=== PATIENT | male | born 1945 | race Native Hawaiian/Other Pacific Islander ===

== ENCOUNTER 2016-03-19 20:41 | Emergency (ER) | payer MEDICARE, MEDICAID ==
[~2016-03-19] VITALS: Ht 172.7 cm; Wt 85.6 kg
[~2016-03-19 20:41] MED LIST: AMLO5 PO; FENO50TA PO; HYDR-3516 PO; OSCA200T PO; PRIM50TA5 PO; XARE10TA PO; ZOCO20TA PO
[2016-03-19 21:03] VITALS: BP 148/90; PULSE 92; RESP 18; TEMP 98.7; O2SAT 100
[2016-03-19] MEDS ORDERED: PRIM50TA5 PO (21:18)
[2016-03-19] MEDS ORDERED: DICL25 PO (21:18)
--- NOTE | 2016-03-19 21:53 | PD ---
HPI Chief Complaint: Fall Time Seen by Provider: 21:53 Travel History International Travel<30 days: No Contact w/Intl Traveler<30days: No Traveled to known affect area: No History of Present Illness HPI Patient is a 70-year-old male with a history of polio and chronic lower extremity weakness presenting with left low side but again back pain after fall. Approximate 4 hours prior to exam the patient was attempting to lift a heavy suitcase as he was flying to [facility] tomorrow. He states that he felt a pulling sensation in his low back and then he fell. He fell onto the carpeted floor but the pain was worse since. Pain is moderate to severe, worse with movement. It radiates down the posterior left leg to the mid thigh. He denies any new paresthesias or weakness. He denies any abdominal pain, bowel or bladder dysfunction or saddle anesthesia. He denies any head or neck injury. He took 2 Aleve which seemed to help. PFSH Past Medical History Arthritis: Yes Musculoskeletal: Yes (polio at a year and a half) Neurologic: Yes (polio at a year and a half. ble weak.. also bilat. hand tremors) Tetanus Vaccination: > 5 Years Influenza Vaccination: Yes Past Surgical History Surgical History: No Previous Surgery Social History Alcohol Use: No Tobacco Use: No Substance Use: No Allergies-Medications (Allergen,Severity, Reaction): Coded Allergies: No Known Allergies (Unverified , 03/19/16) Reported Meds & Prescriptions Reported Meds & Active Scripts Active Diclofenac Potassium 50 Mg Tab 50 Mg PO TID Reported Diclofenac Sodium DR (Diclofenac Sodium) 25 Mg Tabdr 25 Mg PO BID Primidone 50 Mg Tab 100 Mg PO TID Review of Systems Except as stated in HPI: all other systems reviewed are Neg Physical Exam Narrative GENERAL: Well-developed and well-nourished adult male in no acute distress. SKIN: Warm and dry. Good turgor without tenting. HEAD: Normocephalic and atraumatic. EYES: PERRL bilaterally, 5mm. EOMI bilaterally. No injection or icterus present. No proptosis. Lids without edema or erythema. CARDIOVASCULAR: Regular rate and rhythm without murmurs, rubs, clicks or gallops. Dorsalis pedis and posterior tibial pulses 2+ bilaterally. No pedal edema. RESPIRATORY: Clear to auscultation bilaterally with symmetrical rise and fall, no distress or use of accessory muscles. GASTROINTESTINAL: Non-tender, non-distended. Normal bowel sounds all 4 quadrants. No masses or organomegaly present. MUSCULOSKELETAL: Lumbar spinal deformity with prominence to the right, likely scoliosis. Patient has diffuse tenderness to this region without crepitus or step-offs. No edema or discoloration appreciable according to the . Patient has atrophy of the lower extremities chronically some rotational deformities. He has been ambulatory. Patient freely moving all four extremities spontaneously. Extremities without clubbing, cyanosis, or edema. NEUROLOGIC: CN II-XII grossly intact. Awake and alert. Bilateral hip extension and knee extension is strength 1/5, bilateral hip flexion and knee flexion are 4 /5. Chronic foot drop without any ability to plantar or dorsiflex the ankle. Sensation intact L3 through S2 bilaterally. Patellar and Achilles DTRs absent. Babinski bilateral produces no response. Normal speech. PSYCHIATRIC: Appropriate mood and affect; insight and judgment normal. Data Data Last Documented VS Vital Signs Date Time Temp Pulse Resp B/P Pulse Ox O2 Delivery O2 Flow Rate FiO2 03/19/16 23:47 88 18 140/88 100 Room Air 03/19/16 21:[address] Lumb Spine W/O Contrast (03/19/16 ) MDM Medical Decision Making Medical Screen Exam Complete: Yes Emergency Medical Condition: Yes Differential Diagnosis Lumbar strain versus lumbar contusion versus lumbar fracture versus sciatica versus HNP Narrative Course Patient is a 70-year-old male with a history of polio with chronic lumbar deformity and atrophy and weakness of the bilateral lower extremities. He presents with left low back and flank pain after a fall earlier today. He denies any new neurologic symptoms. Significant deformity of the lumbar spine makes evaluating with x-ray difficult. Per the there is no new deformity. He is diffusely tender. Ordered lumbar CT and patient was signed out to Dr. Monroe pending CT. Diagnosis Primary Impression: Contusion of back Qualified Code: S20.229A - Contusion of back, unspecified laterality, initial encounter Departure Forms: Tests/Procedures, Work Release Special Instructions: Due to disability with injury it is unsafe for this patient to travel by plane at this time. Please consider this in regards to patient's travel tomorrow. Scripts Diclofenac Potassium 50 Mg Tab50 Mg PO TID #30 TAB Ref 0 Prov:Eliseo Wang MD 03/19/16 Condition: Stable Arain Estrada III Mar 19, 2016 21:53
--- NOTE | 2016-03-19 23:13 | RADHPO ---
EXAM DATE/TIME: 03/19/2016 22:21 [facility] COMPARISON: No previous studies available for comparison. INDICATIONS : Left lower back and hip pain. RADIATION DOSE: 40.16 CTDIvol (mGy) MEDICAL HISTORY : Polio, current. SURGICAL HISTORY : None. ENCOUNTER: Initial ACUITY: 1 day PAIN SCALE: 8/10 LOCATION: Left lower back. TECHNIQUE: Volumetric scanning of the lumbar spine was performed. Multiplanar reconstructions in the sagittal, coronal and oblique axial planes were performed. Using automated exposure control and adjustment of the mA and/or kV according to patient size, radiation dose was kept as low as reasonably achievable t o obtain optimal diagnostic quality images. FINDINGS: Sagittal images demostrate normal vertebral body alignment and curvature. No fractures are identified . Axial images performed from T12-L1 through L5-S1. There is multilevel disc space narrowing and marlene inal osteophyte formation maximal at L3-L4. T12-L1: There is mild diffuse annular bulge of the disc. The neural foramina are clear bilaterally. There is no significant spinal canal stenosis. L1-L2: There is broad-based annular bulge of disc. There is mild facet arthritis and ligamentum flavum hyper trophy bilaterally. The neural foramina are clear bilaterally. L2-L3: There is broad-based annular bulge of disc asymmetric to the right. There is mild facet arthritis elmo aterally. There is no significant spinal canal stenosis. L3-L4: There is mild annular bulge of the disc. There is mild facet arthritis and ligamentum flavum hypertro phy bilaterally. L4-L5: There is broad-based annular bulge of disc. There is moderate facet arthritis bilaterally with ligame ntum flavum hypertrophy. There is mild spinal canal stenosis. There is mild neural foraminal narrowin g bilaterally. L5-S1: There is mild annular bulge of the disc. There is moderate facet arthritis bilaterally with ligamentu m flavum hypertrophy. There is moderate neural foraminal narrowing bilaterally. There is no significa nt spinal canal stenosis. CONCLUSION: 1. Degenerative changes maximal at L5-S1 without stenosis. Moderate foraminal narrowing bilaterally a t L5-S1. Dino Mina MD on March 19, 2016 at 23:07 Board Certified Radiologist. This report was verified electronically.
[2016-03-19] MEDS ORDERED: DICL50TA PO (23:24)
--- NOTE | 2016-03-19 23:24 | PD ---
Physical Exam Date Seen by Provider: Mar 19, 2016 Time Seen by Provider: 23:21 Narrative 70-year-old male had a fall. He has a history of chronic back problems with weakness he had a ground-level fall at home. He is due to fly to [place] the morning. He was seen initially by Arian White. CT scan has been ordered. CT scan shows degenerative changes maximal L5-S1 without stenosis. Patient is stable for discharge. It does not seem that it would not be advisable for him to fly tomorrow. He is requesting prescription for diclofenac Data Data Last Documented VS Vital Signs Date Time Temp Pulse Resp B/P Pulse Ox O2 Delivery O2 Flow Rate FiO2 03/19/16 21:03 98.7 92 18 148/[address] Lumb Spine W/O Contrast (03/19/16 ) [facility] Medical Record Reviewed: No Supervised Visit with DEON: No Differential Diagnosis Differential includes contusion, fracture Narrative Course CT is negative for fracture Diagnosis Primary Impression: Contusion of back Qualified Code: S20.229A - Contusion of back, unspecified laterality, initial encounter Departure Forms: Work Release, Special Instructions: Due to disability with injury it is unsafe for this patient to travel by plane at this time. Please consider this in regards to patient's travel tomorrow. Tests/Procedures Scripts Diclofenac Potassium 50 Mg Tab50 Mg PO TID #30 TAB Ref 0 Prov:Eliseo Wang MD 03/19/16 Disposition: 01 DISCHARGE HOME Condition: Stable Eliseo Wang MD Mar 19, 2016 23:24
[2016-03-19 23:47] VITALS: BP 140/88; PULSE 88; RESP 18; O2SAT 100
== END 2016-03-19 23:49 | disposition home or self-care (01) ==
LOC: PHEFT 20:41
DX: S20.229A Contusion of unspecified back wall of thorax, initial encounter (principal); Z86.12 Personal history of poliomyelitis; W18.30XA Fall on same level, unspecified, initial encounter; Y92.009 Unspecified place in unspecified non-institutional (private) residence as the place of occurrence of the external cause; Y99.8 Other external cause status
CPT/HCPCS: 72131